=== PATIENT | female | born 1950 | race Caucasian/White ===

== ENCOUNTER 2020-04-19 08:15 | Inpatient (IN) | payer OTHER ==
[2020-04-19] VITALS (12 sets, daily range): BP systolic 115–163; BP diastolic 61–95
[~2020-04-19] VITALS: Ht 165.1 cm; Wt 92.5 kg
[~2020-04-19 08:15] MED LIST: ceFAZolin 1gm IVPB IVPB ONE; celeBREX 200mg Cap **SURGERY PATIENTS ONLY ORAL ONE; oxyCONTIN 20mg tab ORAL ONE
[2020-04-19] MEDS ORDERED: oxyCONTIN 20mg tab ORAL ONE (09:52)
[2020-04-19] MEDS ORDERED: celeBREX 200mg Cap **SURGERY PATIENTS ONLY ORAL ONE (09:52)
[2020-04-19] MEDS ORDERED: CIPRO500 MG/51 PO (09:57)
--- NOTE | 2020-04-19 10:14 | Immediate Post-Op Evaluation ---
Immediate Post-Op Evalulation Immediate Post-Op Evalulation Procedure: R Knee Total Arthroplasty Date of Evaluation: Apr 19, 2020 Time of Evaluation: 14:30 IV Fluids: 1000LR Blood Products: 0 Estimated Blood Loss: 50 Urinary Output: 0 Blood Pressure Systolic: 156 Blood Pressure Diastolic: 82 Pulse Rate: 107 Respiratory Rate: 16 O2 Sat by Pulse Oximetry: 97 Temperature (Fahrenheit): 97.2 Pain Score (1-10): 1 Nausea: No Vomiting: No Complications 0 Patient Status: awake, reacts, patent, none Hydration Status: adequate Dru Gram Ancef IV Given Within 1 Hr of Incision: Yes Time Given: 12:11 Murphy Navas MD Apr 19, 2020 10:14
--- NOTE | 2020-04-19 10:14 | Anethesia Preoperative Eval ---
Anesthesia Pre-op PMH/ROS General Date of Evaluation: Apr 19, 2020 Time of Evaluation: 11:44 Anesthesiologist: Eloise ASA Score: ASA 3 Mallampati Score Class I : Soft palate, uvula, fauces, pillars visible Class II: Soft palate, uvula, fauces visible Class III: Soft palate, base of uvula visible Class IV: Only hard plate visible Mallampati Classification: Class II Surgeon: Addison Diagnosis: R Knee Pain Surgical Procedure: R Knee Total Arthroplasty Anesthesia History: none Family History: no anesthesia problems Allergies: Coded Allergies: No Known Allergies (Unverified , 04/16/20) Medications: see eMAR Patient NPO?: Yes Past Medical History Cardiovascular: Reports: HTN Other: obesity - BMI 34 PSxH Narrative: VALERIE Anesthesia Pre-op Phys. Exam Physician Exam Last Vital Signs Date Time Temp Pulse Resp B/P (MAP) Pulse Ox O2 Delivery O2 Flow Rate FiO2 04/19/20 09:29 Room Air 04/19/20 08:55 97.3 86 18 128/76 99 Constitutional: NAD Neurologic: CN 2-12 intact Cardiovascular: RRR Respiratory: CTA Gastrointestinal: S/NT/ND Airway Exam Mallampati Score: Class II MO: full ROM: limited Teeth: missing, intact Anesthesia Pre-op A/P Risk Assessment & Plan Assessment: ASA 3 Plan: GA, Spinal, Tranexamic Acid Status Change Before Surgery: No Pre-Antibiotics Dru Gram Ancef IV Given Within 1 Hr of Incision: Yes Time Given: 12:11 Murphy Navas MD Apr 19, 2020 10:13
[2020-04-19] MEDS ORDERED: LR 1000ml 1,000 ML IVLG SCH (10:15)
[2020-04-19] MEDS ORDERED: Meperidine 25mg/1ml Inj (FOR RIGORS ONLY) IV PRN (10:15)
[2020-04-19] MEDS ORDERED: Hydromorphone 0.5mg/0.5ml inj IVP PRN (10:15)
[2020-04-19] MEDS ORDERED: fentaNYL 100 mcg/2 mL IV PRN (10:15)
[2020-04-19] MEDS ORDERED: HYDROcodone/Acetamin 7.5/325 tab ORAL PRN (10:15)
[2020-04-19] MEDS ORDERED: HYDROcodone/Acetamin 5/325 tab ORAL PRN (10:15)
[2020-04-19] MEDS ORDERED: LORazepam Inj 2mg/ml 1ml IV PRN (10:15)
[2020-04-19] MEDS ORDERED: DiphenhydrAMINE 50mg/ml Inj IVP PRN (10:15)
[2020-04-19] MEDS ORDERED: Atropine Sulfate 0.4mg/ml inj IVP PRN (10:15)
[2020-04-19] MEDS ORDERED: Labetalol 5mg/ml 20ml vial IV PRN (10:15)
[2020-04-19] MEDS ORDERED: Ketorolac 30mg Inj IV PRN ×2 (10:15)
[2020-04-19] MEDS ORDERED: Metoclopramide 10mg/2ml Inj IVP PRN ×2 (10:15→21:15)
[2020-04-19] MEDS ORDERED: Midazolam 2mg/2ml Inj IVP PRN (10:15)
[2020-04-19] MEDS ORDERED: oxyCODONE HCL/Acetaminophen 5/325mg ORAL PRN (10:15)
[2020-04-19] MEDS ORDERED: EPINEPHrine 1mg/1ml Amp ONE ×2 (10:44→11:38)
[2020-04-19] MEDS ORDERED: cloNIDine 1000mcg/10ml inj ONE (10:44)
[2020-04-19] MEDS ORDERED: Bupivacaine 0.5% Inj 30 ml vial INJ ONE (10:45)
[2020-04-19] MEDS ORDERED: Lidocaine 1% MPF 10mg/ml 5ml ONE (11:20)
[2020-04-19] MEDS ORDERED: Kenalog-40 1ml Vial ONE (11:38)
[2020-04-19] MEDS ORDERED: Duramorph PF 5mg/10ml amp ONE (11:38)
[2020-04-19] MEDS ORDERED: Bupivacaine 0.25% Inj 30ml INJ ONE (11:38)
[2020-04-19] MEDS ORDERED: NeoSporin Gu Irrig 1ml Amp IRRIG ONE (11:38)
[2020-04-19] MEDS ORDERED: Ketorolac 30mg Inj ONE (11:38)
[2020-04-19] MEDS ORDERED: Bacitracin 50000 Units Vial ONE (11:38)
[2020-04-19] MEDS ORDERED: NS Irrig 1000ml ONE (12:00)
[2020-04-19] MEDS ORDERED: LR 1000ml ONE (12:00)
[2020-04-19] MEDS ORDERED: Sterile Water Irrig 1000ml IRRIG ONE (12:00)
--- NOTE | 2020-04-19 12:11 | Pre-Procedure Note/Attestation ---
Pre-Procedure Note/Attestation Complete Prior to Procedure Planned Procedure: right Procedure Narrative: tka Indications for Procedure Pre-Operative Diagnosis: right knee arthritis posttraumactic Attestation I attest that I discussed the nature of the procedure; its benefits; risks and complications; and alternatives (and the risks and benefits of such alternatives), prior to the procedure, with the patient (or the patient's legal sales representative groceries). I attest that, if there was a reasonable possibility of needing a blood transfusion, the patient (or the patient's legal sales representative groceries) was given the [facility] standardized written summary, pursuant to the Romaine Bakari Blood Safety Act ([place] Health and Safety Code # 1645, as amended). I attest that I re-evaluated the patient just prior to the surgery and that there has been no change in the patient's H&P, except as documented below: Luis Jaime MD Apr 19, 2020 12:11
--- NOTE | 2020-04-19 12:11 | Operative Note - PDOC ---
Operative Note Operative Note Pre-op Diagnosis: right knee arthritis posttraumactic Procedure: see op report Post-op Diagnosis: same as pre-op plus Operative Findings: consistent w/pre-op dx studies Anesthesia: regional Specimen: none Complications: none Condition: stable Estimated Blood Loss: none Implant(s) used?: Yes Luis Jaime MD Apr 19, 2020 12:11
[2020-04-19] MEDS ORDERED: HYDROmorphone 1mg/ml Carpuject SUBQ PRN (12:15)
[2020-04-19] MEDS ORDERED: Milk of Magnesia 30ml Ud ORAL PRN (12:15)
[2020-04-19] MEDS ORDERED: oxyCODONE 5mg IR tab ORAL PRN (12:15)
[2020-04-19] MEDS ORDERED: ePHEDrine 50mg/ml Inj ONE (12:21)
[2020-04-19] MEDS ORDERED: Tranexamic Acid 100 ML IVPB ONE (12:30)
[2020-04-19] MEDS ORDERED: Bupivacaine w/Epi 0.25% 50ml vial INJ ONE (12:56)
--- NOTE | 2020-04-19 13:28 | 48 Hour Post Anesthesia Eval ---
Post Anesthesia Evaluation Procedure: R Knee Total Arthroplasty Date of Evaluation: Apr 19, 2020 Time of Evaluation: 16:46 Blood Pressure Systolic: 148 0: 81 Pulse Rate: 83 Respiratory Rate: 18 Temperature (Fahrenheit): 98 O2 Sat by Pulse Oximetry: 98 Airway: patent Nausea: No Vomiting: No Pain Intensity: 2 Hydration Status: adequate Cardiopulmonary Status: Stable Mental Status/LOC: patient returned to baseline Follow-up Care/Observations: 0 Post-Anesthesia Complications: 0 Follow-up care needed: N/A Murphy Navas MD Apr 19, 2020 13:28
--- NOTE | 2020-04-19 15:20 | NUR ---
NURSE NOTES: Patient was admitted to room 405-1 after Rt knee arthroplasty. No SOB noted. Pt denies any pain at this time. Pt a/o x 4, in bed. Rt knee surgical dressing is dry/intact. SCD is on. NS is running via Lt wrist IV access. Provided call light. Bed in lowest position, call light within reach. Will continue to monitor.
--- NOTE | 2020-04-19 16:28 | Diagnostic Imaging Report ---
Indication: Postoperative Technique: 2 views of the right knee Comparison: none Findings: Patient is status post total knee arthroplasty. Prosthesis appears well aligned. Retained air from the surgical exposure is seen in the soft tissues and within the joint capsule. Impression: Postoperative right knee. No unusual features
--- NOTE | 2020-04-19 16:30 | NUR ---
NURSE NOTES: CPM started. Dr. Rosario was notified that pt was admitted to room 405-1. Addendum: 04/19/20 at 1743 by Ina Franco RN ADDENDUM Dr. Rosario reconcile home meds and ordered continue cipro 500mg bid po 5 more days.
[2020-04-19] MEDS: D5 1/2NS w/KCl 20mEq 1,000 ML IV SCH (17:17)
[2020-04-19] MEDS: Docusate Sod/Senna tab ORAL SCH (17:18)
[2020-04-19] MEDS: Aspirin Baby 81mg ORAL SCH (17:18)
--- NOTE | 2020-04-19 17:59 | Operative Note - Dictated ---
DATE OF OPERATION: 04/19/2020 PREOPERATIVE DIAGNOSIS: Right knee posttraumatic arthrosis. POSTOPERATIVE DIAGNOSIS: Right knee posttraumatic arthrosis. PROCEDURES: Right total knee arthroplasty. SURGEON: Luis Jaime MD ANESTHESIA: Femoral adductor block with spinal. INDICATION FOR PROCEDURE: Patient is a pleasant black female who has had asymptomatic radiographic evidence of joint space narrowing. After subsequent fall, she had progressive pain and symptoms, failed conservative treatment, ultimately had further debilitating pain, elected to undergo right total knee arthroplasty. Risks, limitations, expectations, and complications involved in the procedure were discussed in detail including continued pain, need for future surgery, risk of anesthesia, medical complications, DVT, PE, mortality risks. All questions addressed. DESCRIPTION OF PROCEDURE: After informed consent was obtained, patient was brought to the operative room. Patient was placed under spinal femoral adductor block. Right leg was prepped and draped in a sterile manner. Time-out was performed. Standard and medial parapatellar arthrotomy to the distal femur was performed. Distal cutting block was placed. Distal femur was resected. Posterior and anterior sizing guide was placed and measured 5, but it seemed like the 5 would have been too wide. Therefore, it was downsized to a 4. Anterior and posterior chamfer cuts were then made. Proximal tibia was well visualized. External tibial cutting guide was then selected and placed. Knee was reduced with a size 4 femur, size 3 tibial base plate with a 9 mm insert. Knee came out to full extension, good stability, full extension, 10 degrees of flexion, 90 degrees flexion. Good tracking of the patella. At this point, the patella was everted calibrated to 22 mm. Freehand resection was performed. A 31 mm patellar component was selected and placed into the cavity of 22 mm. At this point, cement was prepared. Final implants were placed. Excess cement was removed. Arthrotomy site was closed with #1 Vicryl suture, 0 Vicryl sutures, 3-0 Monocryl sutures, Dermabond and compression dressing was applied. ESTIMATED BLOOD LOSS: None. COMPLICATIONS: None. SPECIMENS: None. IMPLANTS: Include size 4 Triathlon, size 3 tibial baseplate, 9 mm tibial insert, 31 mm patellar component. Luis Jaime M.D. DR: NELLY JOB#: [id number] CC:
--- NOTE | 2020-04-19 18:54 | NUR ---
NURSE HAND-OFF: Important Events on Shift:Admission after Rt knee arthroplasty Patient Status: stable Diet: regular Pending Orders: n/a Pending Results/Labs:n/a Pending MD notification:n/a Latest Vital Signs: Temperature 97.7 , Pulse 93 , B/P 122 /78 , Respiratory Rate 18 , O2 SAT 95 , Nasal Cannula, O2 Flow Rate 3.0 . Vital Sign Comment: stable Latest Holloway Fall Score: 45 Fall Risk: High Risk Safety Measures: Call light Within Reach, Bed Alarm Zone 2, Side Rails Side Rails x2, Bed position Low and Locked. Fall Precautions: Report given to CAMILA Romero.
--- NOTE | 2020-04-19 20:10 | NUR ---
nurse's notes: received patient awake, alert and oriented; seems to be very anxious; admits to be nauseous and has a 5/10 pain on her right knee surgical site; will give both pain and nausea meds as ordered; morales patent and draining yellow urine. will continue to monitor.
[2020-04-19] MEDS: ceFAZolin 2gm/50ml Premix 50 ML IV SCH (20:24)
[2020-04-19] MEDS: oxyCONTIN 20mg tab ORAL SCH (20:26)
[2020-04-19] MEDS: Acetaminophen 500mg (ES) tab ORAL SCH (21:17)
[2020-04-19] MEDS: Ciprofloxacin 500mg tab ORAL SCH (21:17)
[2020-04-20] VITALS: BP 157/81
[2020-04-20 04:00] VITALS: BP 134/77
[2020-04-20] MEDS: D5 1/2NS w/KCl 20mEq 1,000 ML IV SCH (04:09)
[2020-04-20] MEDS: ceFAZolin 2gm/50ml Premix 50 ML IV SCH (04:09)
[2020-04-20] MEDS: Acetaminophen 500mg (ES) tab ORAL SCH ×3 (05:38→22:00)
--- NOTE | 2020-04-20 06:43 | NUR ---
NURSE HAND-OFF: Important Events on Shift: No major significant changes noted this shift. Pain managed well with ordered medication with good results. continues to be nauseous; vomited once my shift; zofran given as ordered. Tolerated CPM at 60 degrees. dressing on right knee continues to be dry and intact but noted a small amount of dried drainaged. Acosta continues to be patent; good UOP this shift. No other complaints received. Anticipating PT eval and tx today. Patient Status: stable at this time Diet: see chart Pending Orders: see chart Pending Results/Labs: see chart Pending MD notification:see chart Latest Vital Signs: Temperature 97.9 , Pulse 88 , B/P 134 /77 , Respiratory Rate 16 , O2 SAT 98 , Nasal Cannula, O2 Flow Rate 3.0 . Vital Sign Comment: see chart Latest Holloway Fall Score: 45 Fall Risk: High Risk Safety Measures: Call light Within Reach, Bed Alarm Zone 2, Side Rails Side Rails x2, Bed position Low and Locked. Fall Precautions: Yellow Socks Yellow Gown Door Sign Patient Fall Education Report will be given to CAMILA Head
--- NOTE | 2020-04-20 07:45 | NUR ---
NURSE NOTES: Received report from CAMILA Romero. Pt awake in bed, alert and oriented. Breathing even and unlabored on NC 2L, no acute distress, denies pain at this time. IV site intact and patent. Acosta in place patent. Surgical dressing on R knee C/D/I SCD on L leg. IS at bedside, instructed pt how to use, pt verbalized understanding. Bed in low position and locked. Call light within reach. Will continue to monitor.
[2020-04-20 08:00] VITALS: BP 134/68
[2020-04-20 09:00] LABS: HEMATOCRIT 40.8 % (37.0-47.0); MEAN CORPUSCULAR VOLUME 105 FL (80-99); PLATELET COUNT 308 K/UL (150-450); RED BLOOD COUNT 3.87 M/UL (4.20-5.40); RED CELL DISTRIBUTION WIDTH 12.2 % (11.6-14.8); WHITE BLOOD COUNT 14.1 K/UL (4.8-10.8)
[2020-04-20] MEDS: oxyCONTIN 20mg tab ORAL SCH ×2 (09:34→20:24)
[2020-04-20] MEDS: Docusate Sod/Senna tab ORAL SCH ×2 (09:35→18:08)
[2020-04-20] MEDS: Ciprofloxacin 500mg tab ORAL SCH ×2 (09:35→20:24)
[2020-04-20] MEDS: celeBREX 200mg Cap **SURGERY PATIENTS ONLY ORAL SCH (09:35)
[2020-04-20] MEDS: Aspirin Baby 81mg ORAL SCH ×2 (09:35→18:08)
[2020-04-20 12:00] VITALS: BP 127/80
--- NOTE | 2020-04-20 12:57 | NUR ---
NURSE NOTES: Pt c/o nausea , PRN Zofran given as ordered. Acosta removed, will continue to monitor for voiding
[2020-04-20] MEDS: NS w/KCl 20mEq 1000ml 1,000 ML IV SCH (15:00)
--- NOTE | 2020-04-20 15:58 | NUR ---
CASE MANAGEMENT: INITIAL REVIEW 70 YO F FROM HOME PMHx: HTN. OBESITY SI:RIGHT KNEE OA VS: T 97.3 HR 86 RR 18 B/P 128/76 SATS 99% ON RA LABS: WBC 14.1 IS: KCL IV @ 75 mL/HR CIPRO PO Q12H OXYCONTIN PO Q12H ASA PO BID CELEBREX PO QD PATIENT ADMITTED TO MED/SURG 04/19/2020 @ 1211 DCP: HOME PLAN OF CARE: DATE OF OPERATION: 04/19/2020 PREOPERATIVE DIAGNOSIS: Right knee posttraumatic arthrosis. POSTOPERATIVE DIAGNOSIS: Right knee posttraumatic arthrosis. PROCEDURES: Right total knee arthroplasty.
[2020-04-20 16:00] VITALS: BP 140/89
--- NOTE | 2020-04-20 16:16 | NUR ---
PT Note PT glenna completed, treatment initiated. Patient has multiple questions on every subject. She was unable to perform SLR on the RLE; used a knee immobilizer during gait training. Patient needs PT services to increase her right knee ROM and strength to improve her functional mobility and gait to enable her to return home. Addendum: 04/20/20 at 1617 by ARASELI GRAHAM PT Amended: Links added.
--- NOTE | 2020-04-20 16:20 | NUR ---
NURSE NOTES: Pt voided using BSC, dark urine output about 100cc
--- NOTE | 2020-04-20 18:44 | History and Physical Report ---
DATE OF ADMISSION: 04/19/2020 HISTORY OF PRESENT ILLNESS: The patient is a 70-year-old female who was admitted to the hospital to undergo knee arthroplasty. She denies any fever or chills. She has been nauseated. She has had up to 10/10 pain. She is not using the ice pack on her knee. She denies nausea or vomiting. Prior to admission to the hospital, she vomited from the pain medication. PHYSICAL EXAMINATION: VITAL SIGNS: Vital signs were obtained on the patient and were reviewed. HEENT: Normocephalic and atraumatic. HEART: S1 and S2. LUNGS: Clear. ABDOMEN: Soft. IMPRESSION: Status post right total knee arthroplasty. PLAN: Preoperative antibiotic prophylaxis was given. Postoperative DVT prophylaxis. Pain control. Avoid taking too much pain medication as it can cause nausea. We will continue giving IV fluids for another 12 to 14 hours. We will discontinue the Acosta catheter on the patient. The patient had asymptomatic pyuria preop. Cipro 500 mg twice a day will be continued for 5 more days. Caleb Rosario M.D. DR: DAISY JOB#: [id number] CC: Luis Jaime M.D.; Fax#: [phone]
--- NOTE | 2020-04-20 19:28 | NUR ---
NURSE HAND-OFF: Important Events on Shift:[Pt had physical therapy x2, removed morales, pt able to use BSC using walker with assist, pt voided after morales out, c/o nausea, PRN zofran given x1, pt tolerated pain. IVF change to NS with 20KCL.] Patient Status: [] Diet: [reg] Pending Orders: [] Pending Results/Labs:[] Pending MD notification:[] Latest Vital Signs: Temperature 97.9 , Pulse 87 , B/P 140 /89 , Respiratory Rate 16 , O2 SAT 98 , Nasal Cannula, O2 Flow Rate 3.0 . Vital Sign Comment: [stable] Latest Holloway Fall Score: 45 Fall Risk: High Risk Safety Measures: Call light Within Reach, Bed Alarm Zone 2, Side Rails Side Rails x2, Bed position Low and Locked. Fall Precautions: Yellow Socks Yellow Gown Door Sign Patient Fall Education Report given to [CAMILA Keita].
--- NOTE | 2020-04-20 19:30 | NUR ---
NURSE NOTES: The patient is alert and oriented x4, cooperative with her care and doesn't appear to be in any active distress. The Resp is even and unlabored and she is room air. The patient has a bedside commode which she need minimal assistance.She has an IV line on the LFA 22g that is patent and asymptomatic.The bed in low level, call light within easy reach. siderails up x2. will continue to monitor as indicated
[2020-04-20 20:00] VITALS: BP 127/71
[2020-04-21] VITALS: BP 141/74
[2020-04-21 04:00] VITALS: BP 154/87
[2020-04-21] MEDS: NS w/KCl 20mEq 1000ml 1,000 ML IV SCH (04:36)
[2020-04-21] MEDS: Acetaminophen 500mg (ES) tab ORAL SCH ×2 (06:07→14:00)
--- NOTE | 2020-04-21 07:12 | NUR ---
NURSE HAND-OFF: Important Events on Shift:Alert and stable Patient Status: Diet: Pending Orders: Pending Results/Labs: Pending MD notification: Latest Vital Signs: Temperature 98.1 , Pulse 89 , B/P 154 /87 , Respiratory Rate 17 , O2 SAT 94 , Nasal Cannula, O2 Flow Rate 3.0 . Vital Sign Comment: Latest Holloway Fall Score: 45 Fall Risk: High Risk Safety Measures: Call light Within Reach, Bed Alarm Zone 2, Side Rails Side Rails x2, Bed position Low and Locked. Fall Precautions: Yellow Socks Yellow Gown Door Sign Patient Fall Education Report given to .
--- NOTE | 2020-04-21 07:45 | NUR ---
NURSE NOTES: Received report from CAMILA Keita. Pt awake in bed, alert and oriented. Breathing even and unlabored on RA, no acute distress, denies pain at this time. IV site intact and patent. Surgical dressing on R knee C/D/I. SCD on L leg. IS at bedside, instructed pt how to use, pt verbalized understanding. Bed in low position and locked. Call light within reach. Will continue to monitor.
[2020-04-21 08:00] VITALS: BP 159/96
[2020-04-21] MEDS: Aspirin Baby 81mg ORAL SCH (08:57)
[2020-04-21] MEDS: Docusate Sod/Senna tab ORAL SCH (08:58)
[2020-04-21] MEDS: celeBREX 200mg Cap **SURGERY PATIENTS ONLY ORAL SCH (08:58)
[2020-04-21] MEDS: oxyCONTIN 20mg tab ORAL SCH (08:58)
[2020-04-21] MEDS: Ciprofloxacin 500mg tab ORAL SCH (08:58)
[2020-04-21 09:12] LABS: HEMATOCRIT 39.7 % (37.0-47.0); HEMOGLOBIN 13.3 G/DL (12.0-16.0); MEAN CORPUSCULAR VOLUME 107 FL (80-99); PLATELET COUNT 261 K/UL (150-450); RED BLOOD COUNT 3.71 M/UL (4.20-5.40); RED CELL DISTRIBUTION WIDTH 12.8 % (11.6-14.8); WHITE BLOOD COUNT 9.4 K/UL (4.8-10.8)
[2020-04-21 12:00] VITALS: BP 147/82
--- NOTE | 2020-04-21 14:20 | NUR ---
NURSE NOTES: Pt in stable condition. Provided discharge instruction, f/u, DME and med medication. Pt verbalized understanding. IV and ID removed. All belongings were accounted for. Pt was escorted by nurse via W/C and picked up by .
--- NOTE | 2020-04-23 15:59 | Discharge Summary ---
Discharge Summary Discharge Summary _ Date of admission: 04/19/2020 Date of discharge: 04/21/[address] Jaime History of Present Illness and Brief Hospital Course Ms. Griggs is a 70-year-old female who presented to [facility] for a scheduled right knee arthroplasty. Patient initially had asymptomatic radiographic evidence of joint space narrowing. After subsequent fall, she had progressive pain and symptoms, failed conservative treatment, ultimately had further debilitating pain, and elected to undergo right total knee arthroplasty. Patient was taken to the OR for a right knee arthroplasty. Patient tolerated the procedure well and was taken to recovery room. Patient was found to have even and unlabored breathing on room air, without acute distress, or pain. SCD was placed on the left leg for DVT prophylaxis. Patient was medically stable for discharge on 04/21/2020 and was discharged home in stable condition. Acosta catheter was discontinued before discharge. Patient was instructed to take ciprofloxacin 500 mg twice a day for 5 more days upon discharge given her asymptomatic pyuria. Consultants: None Discharge Condition Stable Discharge Activity Advance as tolerated Discharge Diet Advance as tolerated Final diagnoses Right knee osteoarthritis Status post right total knee arthroplasty Asymptomatic pyuria I have been assigned to dictate discharge summary for this account. I was not involved in the patient's management Carrington Sullivan Apr 23, 2020 15:59
== END 2020-04-21 14:20 | disposition home or self-care (01) | DRG 470 ==
LOC: SDSOVERFLO 08:15 → 4E 15:20
PROC: 0SRC0J9 Replacement of Right Knee Joint with Synthetic Substitute, Cemented, Open Approach (ICD-10-PCS; principal; 2020-04-19 11:45)
DX: M17.11 Unilateral primary osteoarthritis, right knee (principal); I10 Essential (primary) hypertension
CPT/HCPCS: 36415; 85007; 85025; 94003; 94150; C9399; J2405; J2765